=== PATIENT | female | born 1935 | race Caucasian/White ===

== ENCOUNTER → 2024-03-28 | Outpatient (CLI) | payer MEDICARE ==
[2024-03-28 10:42] LABS: POTASSIUM 4.5 mmol/L (3.4-5.1)
== END | disposition home or self-care (01) ==
LOC: RESCLI 08:32
PROVIDERS: Internal Medicine; ATTEND Student in an Organized Health Care Education/Training Program
DX: I48.0 Paroxysmal atrial fibrillation (principal); I10 Essential (primary) hypertension; Z98.890 Other specified postprocedural states; E03.9 Hypothyroidism, unspecified; E11.9 Type 2 diabetes mellitus without complications; Z79.899 Other long term (current) drug therapy